=== PATIENT | female | born 1975 | race Caucasian/White ===

== ENCOUNTER 2019-12-20 17:20 | Emergency (ER) | payer SELFPAY ==
[2019-12-20 17:26] VITALS: BP 121/68; PULSE 76; TEMP 98.1; BMI 34.2
[2019-12-20] MEDS ORDERED: SILVER SULFADIAZINE 1% TOP CREAM 50 GM JAR TP ONE ×2 (17:36→17:38)
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
== END 2019-12-20 17:41 | disposition home or self-care (01) ==
LOC: JERFT 17:20
PROC: 2W2CX4Z Dressing of Right Lower Arm using Bandage (ICD-10-PCS; principal; 2019-12-20)
DX: T22.111A Burn of first degree of right forearm, initial encounter (principal)
CPT/HCPCS: 99283-25

== ENCOUNTER 2020-09-12 04:46 | Day surgery (SDC) | payer BC ==
[2020-09-06 14:14] VITALS: BMI 34.2
[2020-09-12] MEDS ORDERED: MIDAZOLAM HCL 2 MG/2 ML SINGLE DOSE VIAL ONE (10:56)
[2020-09-12] MEDS ORDERED: PROPOFOL 20 ML ONE (10:56)
[2020-09-12] MEDS ORDERED: oxyCODONE HCL 5 MG TABLET PO PRN (11:12)
[2020-09-12] MEDS ORDERED: ONDANSETRON 4 MG/2 ML VIAL IVPUSH PRN (11:12)
[2020-09-12] MEDS ORDERED: LACTATED RINGERS SOLUTION 1,000 ML IV SCH (11:15)
[2020-09-12] MEDS ORDERED: CLINDAMYCIN 900 MG PREMIX BAG IVPB ONE (11:40)
[2020-09-12] MEDS ORDERED: IBUPROFEN 600 MG TABLET (FP) PO PRN (12:11)
[2020-09-12 13:42] VITALS: TEMP 97.6
[2020-09-12 16:36] VITALS: BP 117/64; PULSE 78
== END 2020-09-12 15:30 | disposition home or self-care (01) ==
LOC: JASU-SURG 04:46
PROVIDERS: ATTEND Obstetrics & Gynecology
PROC: 0UB98ZZ Excision of Uterus, Via Natural or Artificial Opening Endoscopic (ICD-10-PCS; 2020-09-12)
PROC: 0UB97ZX Excision of Uterus, Via Natural or Artificial Opening, Diagnostic (ICD-10-PCS; principal; 2020-09-12 10:00)
PROC: 0UDB7ZX Extraction of Endometrium, Via Natural or Artificial Opening, Diagnostic (ICD-10-PCS; 2020-09-12 10:00)
PROC: 0UJD8ZZ Inspection of Uterus and Cervix, Via Natural or Artificial Opening Endoscopic (ICD-10-PCS; 2020-09-12 10:00)
DX: N92.0 Excessive and frequent menstruation with regular cycle (principal); D25.0 Submucous leiomyoma of uterus; N84.0 Polyp of corpus uteri
CPT/HCPCS: 81025; 88305-TC; 94760